=== PATIENT | female | born 1970 ===

== ENCOUNTER 2016-11-12 10:44 | Outpatient (CLI) | payer OTHER ==
[2016-12-21] MEDS ORDERED: AMLODIPINE BESYL5 MG PO (17:40)
[2016-12-21] MEDS ORDERED: AVIANE PO (17:41)
[2016-12-21] MEDS ORDERED: GLUCOSAMINE500 M1 PO (17:41)
[2016-12-21] MEDS ORDERED: VITAMIN D-31000 UNIT PO (17:42)
[2016-12-21] MEDS ORDERED: OMEGA 3340 MG PO (17:42)
== END 2016-11-12 23:00 ==
LOC: US SRH 10:44
DX: D25.1 Intramural leiomyoma of uterus (principal)

== ENCOUNTER 2016-11-14 11:02 | Outpatient (CLI) | payer OTHER ==
--- NOTE | 2016-11-14 12:36 | DIAGNOSTIC IMAGING REPORT ---
PROCEDURE: US COMPLETE PELVIC W/TRANSVAG INDICATION: PELVIC PAIN TECHNIQUE: Transabdominal and endovaginal coughlin scale and color Doppler sonographic images of the female pelvis were obtained. COMPARISON: Pelvic ultrasound 09/09/2014 FINDINGS: TRANSABDOMINAL SCANS: The uterus is of normal size 9.9 x 5.6 x 6.7 cm Kidneys are normal. TRANSVAGINAL SCANS: The uterus is anteverted. Myometrium contains two fibroids one measuring 19 mm and the other measuring 8 mm. The endometrium measures 16.4 mm. Ovaries were not visualized. There is free fluid in both adnexal regions and the cul-de-sac. IMPRESSION: 1. Fibroid uterus. 2. Free fluid in both adnexal regions and the cul-de-sac.
[2016-12-21] MEDS ORDERED: AMLODIPINE BESYL5 MG PO (17:40)
[2016-12-21] MEDS ORDERED: GLUCOSAMINE500 M1 PO (17:41)
[2016-12-21] MEDS ORDERED: AVIANE PO (17:41)
[2016-12-21] MEDS ORDERED: VITAMIN D-31000 UNIT PO (17:42)
[2016-12-21] MEDS ORDERED: OMEGA 3340 MG PO (17:42)
== END 2016-11-14 23:00 ==
LOC: US SRH 11:02
DX: D25.9 Leiomyoma of uterus, unspecified (principal)

== ENCOUNTER 2016-11-27 08:46 | Outpatient (CLI) | payer OTHER ==
--- NOTE | 2016-11-27 10:48 | DIAGNOSTIC IMAGING REPORT ---
PROCEDURE: US COMPLETE PELVIC W/TRANSVAG INDICATION: PELVIC PAIN TECHNIQUE: Transabdominal and endovaginal coughlin scale and color Doppler sonographic images of the female pelvis were obtained. COMPARISON: Pelvic ultrasound 11/14/2016 and 09/09/2014 FINDINGS: TRANSABDOMINAL SCANS: The uterus is of normal size 10 x 7.6 x 5.8 cm Kidneys are normal. TRANSVAGINAL SCANS: The uterus is anteverted. Myometrium contains three fibroids one measuring 21 mm and two others measuring 9 mm. The endometrium measures 11 mm and has decreased since the previous study. Ovaries not visualized. IMPRESSION: 1. Fibroid uterus. 2. Endometrium measures 11 mm. Previously 16.4 mm
[2016-12-21] MEDS ORDERED: AMLODIPINE BESYL5 MG PO (17:40)
[2016-12-21] MEDS ORDERED: AVIANE PO (17:41)
[2016-12-21] MEDS ORDERED: GLUCOSAMINE500 M1 PO (17:41)
[2016-12-21] MEDS ORDERED: VITAMIN D-31000 UNIT PO (17:42)
[2016-12-21] MEDS ORDERED: OMEGA 3340 MG PO (17:42)
== END 2016-11-27 23:00 ==
LOC: US SRH 08:46
DX: D25.9 Leiomyoma of uterus, unspecified (principal)

== ENCOUNTER 2016-12-23 10:55 | Outpatient (CLI) | payer OTHER ==
[~2016-12-23 10:55] MED LIST: AMLODIPINE BESYL5 MG PO; AVIANE PO; GLUCOSAMINE500 M1 PO; OMEGA 3340 MG PO; VITAMIN D-31000 UNIT PO
== END 2016-12-23 23:00 ==
LOC: LAB SRH 10:55
DX: R93.8 Abnormal findings on diagnostic imaging of other specified body structures (principal)
CPT/HCPCS: 90001; 90047; 90074; 90155; 90364; 91004; 92863; 95059; 98428

== ENCOUNTER 2016-12-25 07:55 | Day surgery (SDC) | payer OTHER ==
--- NOTE | 2016-12-19 19:37 | HISTORY AND PHYSICAL ---
ADMITTED: 12/25/2016 CHIEF COMPLAINT: 1. Irregular periods and endometrial thickening HISTORY OF PRESENT ILLNESS: This is a 46-year-old woman who presented with irregular cycles, most of them seem to be missed cycles; however, an ultrasound done 11/14 measured her uterus at 9.9 cm, anteverted with 2 fibroids, one measuring 19 mm and the other measuring 8 mm and the endometrium measured 16.4 mm, which is thickened. The ovaries were not seen at that time and there was free fluid in both adnexal regions and in the cul-de-sac. Options were discussed with her following that ultrasound and she chose to wait until she had another period. A repeat ultrasound was done within 10 days of the onset of her following, with the ultrasound being done 11/27/2016. The uterus measured 10 cm with 3 small fibroids and the endometrium measured 11 mm at that time. However, as no sampling had been done with the first ultrasound, options for sampling and for treatment were discussed with her. Since the lining had been thickened she has chosen to proceed with a surgical evaluation and is scheduled for a hysteroscopy, D&C. She seems very concerned about the fibroids, although they have measured very small and she is fairly close to menopause. This has been explained to her through a high school band director along with the potential for further treatment if she starts having abnormal bleeding and/ or pain in the future. Future treatment options have also been reviewed with her via high school band director. Surgical risks have been reviewed including infection, bleeding, damage to her structures, anesthesia, and the possibility of further procedures at the time or in the future. Informed consent has been signed, again, working through the high school band director. Questions have been asked and answered. MEDICAL/SURGICAL HISTORY: Menstrual history: Includes menarche at age 13, LMP . Obstetrical history: Includes 3 vaginal deliveries in 1996, 1998 and 2002, and a in 2005. Past surgical history: 2005 and, what appears to be , an ovarian cystectomy in 2010. Today at her preoperative she explains through the high school band director that she had surgery for removal of a mass that she thought was on the back of her uterus, but that was as much information as she was able to explain. Past medical history: Hypertension. MEDICATIONS: 1. Amlodipine 1 tablet p.o. daily. She does not know the dose. 2. Aviane control 1 p.o. daily. 3. Glucosamine 500 mg daily. 4. [place]-3 350 mg to 400 mg capsule 1 daily. 5. Vitamin D3 1 daily. ALLERGIES: 1. NO KNOWN DRUG ALLERGIES. SOCIAL HISTORY: She is , G4, P4. Denies tobacco, alcohol and drug use. FAMILY HISTORY: Her parents and siblings are alive. Her mother and father both have hypertension and her mother has diabetes. She has a sister who has had ovarian cancer. She denies any family history of heart disease or stroke. REVIEW OF SYSTEMS: She denies headache, ear pain, throat pain, chest pain, shortness of breath, digestive disorders and joint and extremity problems. PHYSICAL EXAMINATION: VITAL SIGNS: She is 5 foot 3 inches, weighs 167. Blood pressure 120/80, pulse 72 , temperature 98.4. GENERAL: She is well-developed, well-nourished, alert, and oriented. HEENT: Within normal limits. HEART: Normal. LUNGS: Normal. ABDOMEN: Soft, nondistended. EXTREMITIES: No clubbing, cyanosis, or edema. IMPRESSION: 1. Irregular periods. 2. Endometrial thickening on ultrasound. 3. Fibroid uterus. PLAN: Hysteroscopy, dilatation and curettage, scheduled for 12/25/2016. Informed consent has been signed.
--- NOTE | 2016-12-19 19:37 | HISTORY AND PHYSICAL ---
ADMITTED: 12/25/2016 CHIEF COMPLAINT: 1. Irregular periods and endometrial thickening HISTORY OF PRESENT ILLNESS: This is a 46-year-old woman who presented with irregular cycles, most of them seem to be missed cycles; however, an ultrasound done 11/14 measured her uterus at 9.9 cm, anteverted with 2 fibroids, one measuring 19 mm and the other measuring 8 mm and the endometrium measured 16.4 mm, which is thickened. The ovaries were not seen at that time and there was free fluid in both adnexal regions and in the cul-de-sac. Options were discussed with her following that ultrasound and she chose to wait until she had another period. A repeat ultrasound was done within 10 days of the onset of her following, with the ultrasound being done 11/27/2016. The uterus measured 10 cm with 3 small fibroids and the endometrium measured 11 mm at that time. However, as no sampling had been done with the first ultrasound, options for sampling and for treatment were discussed with her. Since the lining had been thickened she has chosen to proceed with a surgical evaluation and is scheduled for a hysteroscopy, D&C. She seems very concerned about the fibroids, although they have measured very small and she is fairly close to menopause. This has been explained to her through a it operations analyst along with the potential for further treatment if she starts having abnormal bleeding and/ or pain in the future. Future treatment options have also been reviewed with her via it operations analyst. Surgical risks have been reviewed including infection, bleeding, damage to her structures, anesthesia, and the possibility of further procedures at the time or in the future. Informed consent has been signed, again, working through the it operations analyst. Questions have been asked and answered. MEDICAL/SURGICAL HISTORY: Menstrual history: Includes menarche at age 13, LMP . Obstetrical history: Includes 3 vaginal deliveries in 1996, 1998 and 2002, and a in 2005. Past surgical history: 2005 and, what appears to be , an ovarian cystectomy in 2010. Today at her preoperative she explains through the it operations analyst that she had surgery for removal of a mass that she thought was on the back of her uterus, but that was as much information as she was able to explain. Past medical history: Hypertension. MEDICATIONS: 1. Amlodipine 1 tablet p.o. daily. She does not know the dose. 2. Aviane control 1 p.o. daily. 3. Glucosamine 500 mg daily. 4. [place]-3 350 mg to 400 mg capsule 1 daily. 5. Vitamin D3 1 daily. ALLERGIES: 1. NO KNOWN DRUG ALLERGIES. SOCIAL HISTORY: She is , G4, P4. Denies tobacco, alcohol and drug use. FAMILY HISTORY: Her parents and siblings are alive. Her mother and father both have hypertension and her mother has diabetes. She has a sister who has had ovarian cancer. She denies any family history of heart disease or stroke. REVIEW OF SYSTEMS: She denies headache, ear pain, throat pain, chest pain, shortness of breath, digestive disorders and joint and extremity problems. PHYSICAL EXAMINATION: VITAL SIGNS: She is 5 foot 3 inches, weighs 167. Blood pressure 120/80, pulse 72 , temperature 98.4. GENERAL: She is well-developed, well-nourished, alert, and oriented. HEENT: Within normal limits. HEART: Normal. LUNGS: Normal. ABDOMEN: Soft, nondistended. EXTREMITIES: No clubbing, cyanosis, or edema. IMPRESSION: 1. Irregular periods. 2. Endometrial thickening on ultrasound. 3. Fibroid uterus. PLAN: Hysteroscopy, dilatation and curettage, scheduled for 12/25/2016. Informed consent has been signed.
[2016-12-25] MEDS ORDERED: IBUPROFEN400 MG PO (14:31)
[2016-12-25] MEDS ORDERED: VICODIN EQUIVAL1 TAB PO (14:31)
--- NOTE | 2016-12-25 14:33 | Provider's Discharge Care Plan ---
Problem, Goal, Plan Problem List 1. Post-op pain Goals: Improve function Instructions: Follow up as directed
--- NOTE | 2016-12-25 14:33 | Provider's Discharge Care Plan ---
Problem, Goal, Plan Problem List 1. Post-op pain Goals: Improve function Instructions: Follow up as directed
[2016-12-25 15:41] VITALS: BP 158/96
--- NOTE | 2016-12-25 16:47 | OPERATIVE REPORT ---
DATE OF SURGERY: 12/25/2016 SURGEON: Amie Caruso DO ELECTRICAL DISCHARGE MACHINE OPERATOR: None. PREOPERATIVE DIAGNOSES: 1. Irregular periods 2. Endometrial thickening on ultrasound 3. Fibroid uterus POSTOPERATIVE DIAGNOSES: 1. Irregular periods 2. Endometrial thickening on ultrasound 3. Fibroid uterus 4. Endometrial polyps PROCEDURES PERFORMED: 1. Hysteroscopy 2. Dilation and curettage ANESTHESIA: LMA. COMPLICATIONS: None. CONDITION: Stable. ESTIMATED BLOOD LOSS: Minimal. FLUIDS: 400 mL of LR. Blood administered: None. DRAINS: 0. URINE OUTPUT: 125 mL preoperatively. PATHOLOGY SPECIMEN: ECC, EMC. IMPLANTS/GRAFTS: None. SURGICAL FINDINGS: Uterus sounded to 10 cm. Polyps in the endometrial cavity. SURGICAL TECHNIQUE: The patient was taken to the operating room where her anesthesia was obtained. She was prepped and draped in the normal sterile fashion in the lithotomy position. A pelvic exam under anesthesia was normal, and a sterile speculum was placed. The anterior cervical lip was grasped with a single-toothed tenaculum and the cervix was circumferentially injected with 0.5% Marcaine with epinephrine, using approximately 10 mL. The uterus was sounded to 10 cm, 3 of which were the cervix. The cervix was serially dilated to a #8 [place] dilator, and the hysteroscope was advanced into the external os. The cervix was clear. On entry at or above the internal os, there were some polypoid masses visible. Both ostia were seen. The polypoid masses appeared to be fairly small, and the camera was then removed. Endocervical curettings were obtained, followed by endometrial curettings. The tenaculum was then removed as well, and a small amount of bleeding resolved with direct pressure. All instruments were then removed from the patient, and she was awakened from her anesthesia and taken to the recovery room in stable condition.
== END 2016-12-25 16:22 | disposition home or self-care (01) ==
LOC: OR SRH 07:55 → SCU SRH 07:58 → OR SRH 11:30
PROVIDERS: Obstetrics & Gynecology
PROC: 0UDB8ZX Extraction of Endometrium, Via Natural or Artificial Opening Endoscopic, Diagnostic (ICD-10-PCS; principal; 2016-12-25 13:00)
DX: N92.6 Irregular menstruation, unspecified (principal); N84.0 Polyp of corpus uteri; D25.9 Leiomyoma of uterus, unspecified; I10 Essential (primary) hypertension; R93.8 Abnormal findings on diagnostic imaging of other specified body structures
CPT/HCPCS: 29229; 29240; 50004; 60001; 70002; 80212; 80575; 83773